=== PATIENT | female | born 1990 | race Caucasian/White ===

== ENCOUNTER 2023-07-19 19:35 | Outpatient (REF) | payer BC, SELFPAY ==
[2023-07-25 12:08] LABS: Age Gdln ACOG Testing Note (.); HPV Aptima Negative (Negative); IGP, Aptima HPV, rfx 16/18,45 Note (.)
== END 2023-07-19 19:36 | disposition home or self-care (01) ==
LOC: LAB 19:35
PROVIDERS: Visit Provider Obstetrics & Gynecology
DX: Z12.4 Encounter for screening for malignant neoplasm of cervix (principal)
CPT/HCPCS: 87624; G0145

== ENCOUNTER 2023-08-01 11:00 | Outpatient (OUT) | payer BC, SELFPAY | END 2023-08-01 11:01 | disposition home or self-care (01) | LOC: PST 11:04 | PROVIDERS: Visit Provider Obstetrics & Gynecology | DX: Z01.818 Encounter for other preprocedural examination (principal); N92.0 Excessive and frequent menstruation with regular cycle; N93.9 Abnormal uterine and vaginal bleeding, unspecified; R10.2 Pelvic and perineal pain ==

== ENCOUNTER 2025-03-31 13:33 | Outpatient (REF) | payer OTHER, BC, SELFPAY | END 2025-04-02 12:46 | disposition home or self-care (01) | LOC: LAB 13:33 | PROVIDERS: Visit Provider Obstetrics & Gynecology | DX: N92.6 Irregular menstruation, unspecified (principal) | CPT/HCPCS: 88305 ==

== ENCOUNTER 2025-04-16 08:55 | Outpatient (OUT) | payer OTHER, BC, SELFPAY | END 2025-04-16 08:56 | disposition home or self-care (01) | LOC: PST 09:00 | PROVIDERS: Visit Provider Obstetrics & Gynecology | DX: Z01.818 Encounter for other preprocedural examination (principal); N92.0 Excessive and frequent menstruation with regular cycle; N93.9 Abnormal uterine and vaginal bleeding, unspecified; R10.2 Pelvic and perineal pain ==